=== PATIENT | male | born 1945 | race Two or more races ===

== ENCOUNTER 2021-12-30 12:10 | Emergency (ER) | payer OTHER ==
[~2021-12-30] VITALS: Ht 172.7 cm; Wt 80.7 kg
[2021-12-30] MEDS ORDERED: PRILOSEC10 MG PO (12:37)
== END 2021-12-30 15:05 | disposition home or self-care (01) ==
LOC: ER 12:10
DX: R42 Dizziness and giddiness (principal)

== ENCOUNTER 2022-01-07 13:23 | Emergency (ER) | payer OTHER ==
[~2022-01-07] VITALS: Ht 172.7 cm; Wt 80.7 kg
[~2022-01-07 13:23] MED LIST: PRILOSEC10 MG PO
== END 2022-01-07 17:23 | disposition home or self-care (01) ==
LOC: ER 13:23
DX: R07.89 Other chest pain (principal); R05.9 Cough, unspecified; J06.9 Acute upper respiratory infection, unspecified; Z20.822 Contact with and (suspected) exposure to COVID-19

== ENCOUNTER 2022-02-20 13:07 | Emergency (ER) | payer OTHER ==
[~2022-02-20] VITALS: Ht 172.7 cm; Wt 77.1 kg
[2022-02-20] MEDS ORDERED: PRAVASTATIN SOD20 MG (13:31)
== END 2022-02-20 17:29 | disposition home or self-care (01) ==
LOC: ER 13:07
DX: J40 Bronchitis, not specified as acute or chronic (principal); E78.00 Pure hypercholesterolemia, unspecified; I10 Essential (primary) hypertension